=== PATIENT | male | born 1965 | race Caucasian/White ===

== ENCOUNTER 2017-11-21 22:04 | Emergency (ER) | payer SELFPAY ==
[~2017-11-21] VITALS: Ht 185.4 cm; Wt 81.6 kg
[~2017-11-21 22:04] MED LIST changes: +LIDOCAINE 2% VISC SLN 15ML UDC PO ONE; +MAG HYD/AL HYD/SIMETH 30ML UDC PO ONE; -MAG-66 PO; -PANT40SU3 PO
[2017-11-21] MEDS ORDERED: NS(*) 0.9% 1000 ML BAG 1,000 ML IV ONE (22:22)
--- NOTE | 2017-11-21 22:22 | ER Report ---
History and Physical Time Seen By MD: 22:16 HPI/ROS CHIEF COMPLAINT: Abdominal pain HISTORY OF PRESENT ILLNESS: 52-year-old male presents with midepigastric abdominal pain feels different from his prior pancreatitis described as severe 15 out of 10 associated with pain in the back and no migration of pain onset 2.5 hours ago worsening unremitting. No nausea or vomiting no diarrhea or loose stools denies recent alcohol use states history of alcohol use but it's been a long time that he has been sober. Denies drug use. Believes alcohol was the original causes pancreatitis. Is unsure if he suffers from alcoholic liver disease. No fevers. No other concerns or complaints today. EMS concern for A. fib and gave aspirin in route REVIEW OF SYSTEMS: Constitutional: No fever, no chills. Eyes: No discharge. ENT: No sore throat. Cardiovascular: No chest pain, no palpitations. Respiratory: No cough, no shortness of breath. Gastrointestinal: No diarrhea no bloody stools Genitourinary: No hematuria. Musculoskeletal: No back pain. Skin: No rashes. Neurological: No headache. Allergies: Coded Allergies: No Known Allergies (Verified Allergy, Mild, 01/17/17) Home Meds Active Scripts Ciprofloxacin Hcl (CIPRO) 500 Mg Tablet, 500 MG PO BID, #20 Prov:TRACE LEACH MD 01/17/17 Oxycodone Hcl/Acetaminophen (PERCOCET 5-325 MG TABLET) 1 Each Tablet, 1 EACH PO Q4H for PAIN, #20 TAB 0 Refills Prov:LILIAN CRUZ MD 11/25/16 Hx Smoking: Yes (/ PPD) Smoking Status: Current: Every Day Smoker Exposure to Second Hand Smoke?: Yes Hx Substance Use Disorder: No Hx Alcohol Use: Yes (DAILY USE) Constitutional Vital Sign - Last 24 Hours 11/21/17 22:17 Pulse 89 Resp 20 B/P (MAP) 147/97 Pulse Ox 97 O2 Delivery Room Air Physical Exam General Appearance: The patient is alert, has no immediate need for airway protection and no signs of toxicity. He appears to be in acute distress due to pain Eyes: Pupils equal and round no pallor or injection. ENT, Mouth: Mucous membranes are moist. Respiratory: There are no retractions, lungs are clear to auscultation. Cardiovascular: Regular rate and rhythm. [ ] Gastrointestinal: Abdomen is soft and moderately tender midepigastric region no tenderness below the umbilicus, no masses Neurological: Grossly normal Skin: Warm and dry, no rashes. Musculoskeletal: Neck is supple non tender. Extremities are nontender, nonswollen and have full range of motion. No edema DIFFERENTIAL DIAGNOSIS: After history and physical exam differential diagnosis was considered for pancreatitis pancreatic pseudocyst pancreatic infarction biliary tract disease AAA aortic dissection TX. Medical Decision Making Data Points Result Diagram: 11/21/17220911/21/172209 Laboratory Hematology Test 11/21/17 22:10 11/21/17 23:50 Red Blood Count 4.68 M/uL (4.00-5.60) Mean Corpuscular Volume 100.6 fL (80.0-96.0) Mean Corpuscular Hemoglobin 35.6 pg (26.0-33.0) Mean Corpuscular Hemoglobin Concent 35.4 g/dL (32.0-36.0) Red Cell Distribution Width 13.4 % (11.5-14.5) Mean Platelet Volume 8.0 fL (7.2-11.1) Neutrophils (%) (Auto) 64.7 % (39.4-72.5) Lymphocytes (%) (Auto) 21.5 % (17.6-49.6) Monocytes (%) (Auto) 11.7 % (4.1-12.4) Eosinophils (%) (Auto) 1.1 % (0.4-6.7) Basophils (%) (Auto) 1.0 % (0.3-1.4) Nucleated RBC Relative Count (auto) 0.2 /100WBC Neutrophils # (Auto) 5.2 K/uL (2.0-7.4) Lymphocytes # (Auto) 1.7 K/uL (1.3-3.6) Monocytes # (Auto) 0.9 K/uL (0.3-1.0) Eosinophils # (Auto) 0.1 K/uL (0.0-0.5) Basophils # (Auto) 0.1 K/uL (0.0-0.1) Nucleated RBC Absolute Count (auto) 0.02 K/uL Sodium Level 129 mmol/L (137-145) Potassium Level 3.9 mmol/L (3.5-5.0) Chloride Level 95 mmol/L (98-107) Carbon Dioxide Level 21 mmol/L (22-30) Blood Urea Nitrogen 8 mg/dl (9-21) Creatinine 0.70 mg/dl (0.66-1.25) Glomerular Filtration Rate Calc > 60.0 Random Glucose 125 mg/dl (75-110) Calcium Level 9.9 mg/dl (8.4-10.2) Total Bilirubin 1.0 mg/dl (0.2-1.3) Aspartate Amino Transf (AST/SGOT) 90 U/L (0-35) Alanine Aminotransferase (ALT/SGPT) 123 U/L (0-56) Alkaline Phosphatase 99 U/L (0-126) Troponin I < 0.012 ng/ml Total Protein 7.8 gm/dl (6.3-8.2) Albumin 4.0 g/dl (3.5-5.0) Amylase Level 73 U/L (0-110) Lipase 101 U/L (23-300) Urine Color Yellow Urine Clarity Clear Urine pH 6.0 pH (4.8-9.5) Urine Specific [place] 1.036 Urine Protein Negative mg/dL (NEGATIVE) Urine Glucose (UA) Negative mg/dL (NEGATIVE) Urine Ketones Trace mg/dL (NEGATIVE) Urine Blood Negative (NEGATIVE) Urine Nitrite Negative (NEGATIVE) Urine Bilirubin Negative (NEGATIVE) Urine Urobilinogen Negative mg/dL (0.2-1.9) Urine Leukocyte Esterase Negative (NEGATIVE) Urine RBC 1 /HPF (0-2/HPF) Urine WBC 1 /HPF (0-5/HPF) Urine Squamous Epithelial Cells None /LPF (</=FEW) Urine Bacteria Negative /HPF (NONE-FEW) Urine Mucus None /HPF (NONE-FEW) Chemistry Test 11/21/17 22:10 11/21/17 23:50 White Blood Count 8.0 k/uL (4.5-11.0) Red Blood Count 4.68 M/uL (4.00-5.60) Hemoglobin 16.7 g/dL (14.0-18.0) Hematocrit 47.1 % (42.0-52.0) Mean Corpuscular Volume 100.6 fL (80.0-96.0) Mean Corpuscular Hemoglobin 35.6 pg (26.0-33.0) Mean Corpuscular Hemoglobin Concent 35.4 g/dL (32.0-36.0) Red Cell Distribution Width 13.4 % (11.5-14.5) Platelet Count 361 K/uL (150-450) Mean Platelet Volume 8.0 fL (7.2-11.1) Neutrophils (%) (Auto) 64.7 % (39.4-72.5) Lymphocytes (%) (Auto) 21.5 % (17.6-49.6) Monocytes (%) (Auto) 11.7 % (4.1-12.4) Eosinophils (%) (Auto) 1.1 % (0.4-6.7) Basophils (%) (Auto) 1.0 % (0.3-1.4) Nucleated RBC Relative Count (auto) 0.2 /100WBC Neutrophils # (Auto) 5.2 K/uL (2.0-7.4) Lymphocytes # (Auto) 1.7 K/uL (1.3-3.6) Monocytes # (Auto) 0.9 K/uL (0.3-1.0) Eosinophils # (Auto) 0.1 K/uL (0.0-0.5) Basophils # (Auto) 0.1 K/uL (0.0-0.1) Nucleated RBC Absolute Count (auto) 0.02 K/uL Glomerular Filtration Rate Calc > 60.0 Calcium Level 9.9 mg/dl (8.4-10.2) Total Bilirubin 1.0 mg/dl (0.2-1.3) Aspartate Amino Transf (AST/SGOT) 90 U/L (0-35) Alanine Aminotransferase (ALT/SGPT) 123 U/L (0-56) Alkaline Phosphatase 99 U/L (0-126) Troponin I < 0.012 ng/ml Total Protein 7.8 gm/dl (6.3-8.2) Albumin 4.0 g/dl (3.5-5.0) Amylase Level 73 U/L (0-110) Lipase 101 U/L (23-300) Urine Color Yellow Urine Clarity Clear Urine pH 6.0 pH (4.8-9.5) Urine Specific [place] 1.036 Urine Protein Negative mg/dL (NEGATIVE) Urine Glucose (UA) Negative mg/dL (NEGATIVE) Urine Ketones Trace mg/dL (NEGATIVE) Urine Blood Negative (NEGATIVE) Urine Nitrite Negative (NEGATIVE) Urine Bilirubin Negative (NEGATIVE) Urine Urobilinogen Negative mg/dL (0.2-1.9) Urine Leukocyte Esterase Negative (NEGATIVE) Urine RBC 1 /HPF (0-2/HPF) Urine WBC 1 /HPF (0-5/HPF) Urine Squamous Epithelial Cells None /LPF (</=FEW) Urine Bacteria Negative /HPF (NONE-FEW) Urine Mucus None /HPF (NONE-FEW) Toxicology Test 11/21/17 22:10 Urinalysis Test 11/21/17 23:50 Urine Color Yellow Urine Clarity Clear Urine pH 6.0 pH (4.8-9.5) Urine Specific [place] 1.036 Urine Protein Negative mg/dL (NEGATIVE) Urine Glucose (UA) Negative mg/dL (NEGATIVE) Urine Ketones Trace mg/dL (NEGATIVE) Urine Blood Negative (NEGATIVE) Urine Nitrite Negative (NEGATIVE) Urine Bilirubin Negative (NEGATIVE) Urine Urobilinogen Negative mg/dL (0.2-1.9) Urine Leukocyte Esterase Negative (NEGATIVE) Urine RBC 1 /HPF (0-2/HPF) Urine WBC 1 /HPF (0-5/HPF) Urine Squamous Epithelial Cells None /LPF (</=FEW) Urine Bacteria Negative /HPF (NONE-FEW) Urine Mucus None /HPF (NONE-FEW) ED Course/Re-evaluation ED Course Prehospital EKG reviewed as transmitted 11/21/2017 at 2146 does not appear to be A. fib P waves are present there is significant artifact which may have triggered A. fib on the computer. Repeat EKG 11/21/2017 at 2239 is normal and was read by me. Normal sinus rhythm with a rate of 70. Re-evaluation 11/22/2017 1:23:37 am patient feeling better and is ready for discharge. A consult was placed to Dr. Peres who recommends outpatient therapy with Protonix twice a day and referral for EGD as needed. This was discussed with the patient who agrees with plan of care. Decision to Disposition Date: Nov 22, 2017 Decision to Disposition Time: 01:24 Depart Departure Latest Vital Signs Vital Signs Date Time Temp Pulse Resp B/P (MAP) Pulse Ox O2 Delivery O2 Flow Rate FiO2 11/21/17 22:17 89 20 147/97 97 Room Air Impression: Primary Impression: Epigastric abdominal pain Condition: Improved Disposition: HOME OR SELF-CARE Referrals: CHHAYA CHAVIRA MD 10 Days New Scripts Mag Hydrox/Al Hydrox/Simeth (MAALOX MAXIMUM STRENGTH SUSP) 355 Ml Oral.susp 35 ML PO 3 times a day for PAIN for 7 Days, #1 BOTTLE Prov: TOYA LUND MD 11/22/17 Oxycodone Hcl/Acetaminophen (PERCOCET 5-325 MG TABLET) 1 Each Tablet 1 EACH PO Q4H Y for PAIN, #12 TAB 0 Refills Prov: TOYA LUND MD 11/22/17 Pantoprazole Sodium (PROTONIX) 40 Mg Granpkt.dr 40 MG PO BID for 10 Days, #40 PACK Prov: TOYA LUND MD 11/22/17 Patient Instructions: Diet for Stomach Ulcers and Gastritis (ED) TOYA LUND MD Nov 21, 2017 22:22
[2017-11-21] MEDS ORDERED: HYDROmorphone(ER ONLY) 1 MG/ML IVP ONE (22:25)
[2017-11-21] MEDS ORDERED: ONDANSETRON 4 MG/2 ML VIAL IVP ONE (22:25)
[2017-11-21 22:33] LABS: PLATELET COUNT, AUTOMATED 361 K/uL (150-450)
[2017-11-21] MEDS ORDERED: NS 0.9% 20 ML SDV 60 ML ONE (22:42)
[2017-11-21] MEDS ORDERED: IOPAMIDOL 76% 75 ML INFUS BTL 75 ML ONE (22:42)
--- NOTE | 2017-11-21 23:22 | RADIOLOGY IMAGING REPORT ---
FACILITY: [facility] PATIENT NAME: Chucky Gray : 1965 MR: [id number] V: [id number] EXAM DATE: ORDERING PHYSICIAN: TOYA LUND TECHNOLOGIST: Location: [facility] Patient: Chucky Gray : 1965 Visit/Account:[id number] Date of Sevice: 11/21/2017 CHEST SINGLE AP HISTORY: Wheezing. Dyspnea. COMPARISON: 01/17/2017 FINDINGS: Cardiomediastinal contours: Normal Lungs and pleura: Normal Bones/soft tissues: Normal Other findings: None significant IMPRESSION: 1. Normal chest. No change. Report Dictated By: Jaime Watson MD at 11/21/2017 11:09 PM Report E-Signed By: Jaime Watson MD at 11/21/2017 11:17 PM WSN:[id number]
--- NOTE | 2017-11-21 23:29 | EKG ---
[place] [facility] [place]IENT NAME: COMPA NEUMANN : [id number] MR: [id number] V: [id number] EXAM DATE: ORDERING PHYSICIAN: TOYA LUND TECHNOLOGIST: RENATE Traore Reason : HTN Blood Pressure : / mmHG Vent. Rate : 070 BPM Atrial Rate : 070 BPM P-R Int : 132 ms QRS Dur : 088 ms QT Int : 418 ms P-R-T Axes : -12 -28 061 degrees QTc Int : 451 ms Sinus rhythm Borderline left axis When compared with ECG of 27-MAY-2014 10:09, No significant change was found Confirmed by CARLY BAI ([id number]) on 11/23/2017 3:34:58 PM Referred By: Confirmed By:CARLY BAI
[2017-11-21] MEDS ORDERED: ATRO/SCOPOL/HYOSCY/PB 5 ML ELX PO ONE (23:50)
[2017-11-21] MEDS ORDERED: FAMOTIDINE(*) 20MG/50ML PREMIX 50 ML IVPB ONE (23:50)
[2017-11-21] MEDS ORDERED: LIDOCAINE 2% VISC SLN 15ML UDC ONE (23:57)
[2017-11-21] MEDS ORDERED: MAG HYD/AL HYD/SIMETH 30ML UDC ONE (23:57)
--- NOTE | 2017-11-22 00:13 | RADIOLOGY IMAGING REPORT ---
FACILITY: [facility] [place] PATIENT NAME: Chucky Gray : 1965 MR: [id number] V: [id number] EXAM DATE: ORDERING PHYSICIAN: TOYA LUND TECHNOLOGIST: Location: [facility] Patient: Chucky Gray : 1965 Visit/Account:[id number] Date of Sevice: 11/21/2017 ABDOMEN/PELVIS WITH CONTRAST HISTORY: Abdominal pain TECHNIQUE: Axial images were obtained through the abdomen and pelvis with intravenous contrast . One of the following dose optimization techniques was utilized in the performance of this exam: automate d exposure control; adjustment of the mA and/or kv according to patient size; or use of iterative rec onstruction technique. Specific details can be referenced in the facility's radiology CT exam operati onal policy. CONTRAST: 75 cc of Isovue-370 COMPARISON: CT abdomen/pelvis 01/17/2017 FINDINGS: Visualized lung bases: Stable right lower lobe subpleural opacities. Hepatobiliary: Cholecystectomy. Spleen: Negative. Adrenals: Negative. Pancreas: Negative. Kidneys/ureters/bladder: Negative. Bowel/peritoneum/mesentery: Normal appendix. No bowel obstruction, free air or ascites. Colonic div erticulosis without acute inflammatory change. Vessels: Mild arterial calcifications. Lymph nodes: Negative. Pelvic genitourinary: Negative. Bones/body wall: Small indirect right inguinal hernia containing fat. Other findings: None significant IMPRESSION: 1. Normal appendix. No acute inflammatory process identified. 2. Mild colonic diverticulosis Report Dictated By: Jaime Watson MD at 11/21/2017 11:58 PM Report E-Signed By: Jaime Watson MD at 11/22/2017 12:07 AM WSN:[id number]
[2017-11-22 00:36] VITALS: BP 139/113
[2017-11-22] MEDS ORDERED: MORPHINE 4 MG/ML SYR ONE (00:48)
[2017-11-22] MEDS ORDERED: MORPHINE 4 MG/ML SYR IVP ONE (00:50)
[2017-11-22] MEDS ORDERED: PANTOPRAZOLE SOD 20 MG TABEC PO SCH (01:10)
[2017-11-22] MEDS ORDERED: PANTOPRAZOLE SOD 40 MG TABEC PO ONE (01:19)
[2017-11-22] MEDS ORDERED: PANT40SU3 PO (01:27)
[2017-11-22] MEDS ORDERED: MAG-66 PO (01:27)
[2017-11-22] MEDS ORDERED: OXYC-865 PO (01:27)
== END 2017-11-22 01:40 | disposition home or self-care (01) ==
LOC: ER 22:14
DX: R10.13 Epigastric pain (principal)
CPT/HCPCS: 71045; 74177; 80320; 81001; 82150; 83690; 84484; 85025; 93005; 96361; 96365; 96375; 99284; J1170; J2270; J2405; J3490; J7030; J7050; Q9967; 82040; 82247; 82310; 82374; 82435; 82565; 82947; 84075; 84132; 84155; 84295; 84450; 84460; 84520

== ENCOUNTER → 2017-11-21 | Outpatient (CLI) | payer SELFPAY ==
[~2017-11-21] MED LIST: AMI10 PO; CIPR-344 PO; IBUP200C71 PO; MAG-66 PO; NAPR500T75 PO; OXYC-865 PO; PANT40SU3 PO; TRAM-627 PO
== END ==
LOC: AMB 21:34
PROVIDERS: ATTEND Nurse Practitioner
DX: R10.10 Upper abdominal pain, unspecified (principal); I48.91 Unspecified atrial fibrillation; R94.31 Abnormal electrocardiogram [ECG] [EKG]
CPT/HCPCS: A0425; A0427